=== PATIENT | female | born 1950 | race Two or more races ===

== ENCOUNTER → 2024-10-24 | Outpatient (BNVA) | payer MEDICARE, MEDICAID, SELFPAY | END | disposition home or self-care (01) | PROVIDERS: PCP Student in an Organized Health Care Education/Training Program; Referring Provider Student in an Organized Health Care Education/Training Program; Visit Provider Urology | DX: N35.92 Unspecified urethral stricture, female (principal); Z87.442 Personal history of urinary calculi; N18.4 Chronic kidney disease, stage 4 (severe) | CPT/HCPCS: 52281; 81003; 96372; A4217; A4649; C1894; J1580; A9270 ==

== ENCOUNTER → 2025-01-02 | Outpatient (CLI) | payer MEDICARE, MEDICAID, SELFPAY ==
--- NOTE | 2025-01-02 | XR_ITS ---
Examination: CT abdomen and pelvis without contrast. Coronal 3-D reconstructions. Sagittal 2-D reconstructions. Date and time of exam:January 02, 2025 0809 hours Comparison April 01, 2022 INDICATIONS: History kidney stones, flank pain one year, multiple calculi on CT study April 01, 2022 CTDI: vol (mGy): 7.93 DLP: (mGycm): 394 Technique: Axial images of the abdomen have been obtained, 3 mm slice thickness Intravenous contrast material has not been administered. Low dose protocols were performed. One or more of the following dose reduction techniques were used; automated exposure control, adjustment of the mA and/or KV according to patient size, use of iterative reconstruction technique. Findings: No visualized liver or splenic lesions Absent gallbladder No pancreatic mass Bilateral renal calculi, the largest right kidney 2 mm left kidney 2 mm Posterior right renal cyst 4.3 cm Right colostomy No bowel obstruction Localized weakening of the anterior abdominal wall Colonic sutures in the sigmoid colon No bladder calculi Absent uterus Severe osteopenia with chronic osteoporotic compressions T12 T11 No acute fracture IMPRESSION: Nonobstructing bilateral renal calculi Right colostomy No obstruction
== END | disposition home or self-care (01) ==
LOC: CCTX 07:44
PROVIDERS: Referring Provider Urology; Visit Provider Urology
DX: N20.0 Calculus of kidney (principal)
CPT/HCPCS: 74176

== ENCOUNTER → 2025-01-09 | Outpatient (BNVA) | payer MEDICARE, MEDICAID, SELFPAY | END | disposition home or self-care (01) | PROVIDERS: PCP Student in an Organized Health Care Education/Training Program; Referring Provider Student in an Organized Health Care Education/Training Program; Visit Provider Urology | DX: N18.4 Chronic kidney disease, stage 4 (severe) (principal); N20.0 Calculus of kidney; N28.1 Cyst of kidney, acquired; E66.9 Obesity, unspecified; Z68.25 Body mass index [BMI] 25.0-25.9, adult; Z87.891 Personal history of nicotine dependence | CPT/HCPCS: 99212; G0463 ==